=== PATIENT | female | born 1995 | race Caucasian/White ===

== ENCOUNTER 2017-06-17 16:54 | Outpatient (CLI) | payer OTHER ==
[2017-06-17 17:28] LABS: BASOPHILS # (AUTO) 0.3 K/uL (0.00-0.22); EOSINOPHILS # (AUTO) 0.1 K/uL (0-0.4); HEMATOCRIT 40.6 % (36-48); HEMOGLOBIN 13.5 g/dL (12.0-16.0); LYMPHOCYTES # (AUTO) 1.6 K/uL (2.5-16.5); MEAN CORPUSCULAR HEMOGLOBIN 30 pg (27-31); MEAN CORPUSCULAR HGB CONC 33 g/dL (33-37); MEAN CORPUSCULAR VOLUME 90.2 fL (80-94); MONOCYTES # (AUTO) 0.4 K/uL (0.8-1.0); NEUTROPHILS # (AUTO) 3.9 K/uL (1.8-7.7); PLATELET COUNT (AUTO) 235 K/uL (140-450); RED CELL DISTRIBUTION WIDTH 12.6 % (11.6-13.7); WHITE BLOOD COUNT (AUTO) 6.3 K/uL (4.8-10.8)
[2017-06-17 18:23] LABS: BILIRUBIN,URINE NEGATIVE (NEGATIVE); BLOOD, URINE NEGATIVE (NEGATIVE); LEUKOCYTE ESTERASE ,URINE NEGATIVE (NEGATIVE); NITRITE, URINE NEGATIVE (NEGATIVE); UGLUCOSE NEGATIVE (NEGATIVE)
[2017-06-17 18:38] LABS: APPEARANCE,URINE CLEAR (CLEAR); COLOR,URINE STRAW (YELLOW)
[2017-06-17 20:25] LABS: ANION GAP 13.5 (8-16); CHLORIDE 102 mmol/L (98-107); GLUCOSE 136 mg/dL (74-106); POTASSIUM 3.5 mmol/L (3.5-5.1); SODIUM SERUM 138 mmol/L (136-145); UREA NITROGEN, BLOOD 11 mg/dL (7-18)
[2017-06-17 20:26] LABS: CREATININE 0.7 mg/dL (0.6-1.3); GFR ARICAN-AMERICAN 135 mL/min (>90)
[2017-06-17 20:48] LABS: TOTAL BILIRUBIN 0.5 mg/dL (0.0-1.0)
[2017-06-17 20:49] LABS: ALBUMIN 4.1 g/dL (3.4-5.0)
== END 2017-06-17 20:37 | disposition home or self-care (01) ==
LOC: MLB 16:54
DX: Z13.228 Encounter for screening for other metabolic disorders (principal); Z13.21 Encounter for screening for nutritional disorder; Z13.1 Encounter for screening for diabetes mellitus; R63.4 Abnormal weight loss; R59.1 Generalized enlarged lymph nodes; Z77.21 Contact with and (suspected) exposure to potentially hazardous body fluids
CPT/HCPCS: 36415; 80053; 81003; 82306; 83036; 85025; 86702

== ENCOUNTER 2018-10-27 15:52 | Outpatient (CLI) | payer OTHER ==
[2018-10-27 16:37] LABS: BASOPHILS % (AUTO) 0.5 % (0.0-2.0); EOSINOPHILS # (AUTO) 0.1 K/uL (0-0.4); EOSINOPHILS % (AUTO) 1.3 % (0.0-4.0); HEMATOCRIT 41.1 % (36-48); HEMOGLOBIN 13.5 g/dL (12.0-16.0); LYMPHOCYTES # (AUTO) 1.5 K/uL (2.5-16.5); LYMPHOCYTES % (AUTO) 16.7 % (20.5-51.1); MEAN CORPUSCULAR HEMOGLOBIN 30 pg (27-31); MEAN CORPUSCULAR HGB CONC 33 g/dL (33-37); MEAN CORPUSCULAR VOLUME 90.8 fL (80-94); MONOCYTES # (AUTO) 0.5 K/uL (0.8-1.0); MONOCYTES % (AUTO) 5.4 % (1.7-9.3); NEUTROPHILS % (AUTO) 76.1 % (42.2-75.2); PLATELET COUNT (AUTO) 458 K/uL (140-450); RED BLOOD CELL COUNT(AUTO) 4.52 MIL/uL (4.20-5.40); WHITE BLOOD COUNT (AUTO) 9.2 K/uL (4.8-10.8)
== END 2018-10-27 21:06 | disposition home or self-care (01) ==
LOC: MLB 15:52
DX: E87.6 Hypokalemia (principal); N12 Tubulo-interstitial nephritis, not specified as acute or chronic
CPT/HCPCS: 36415; 85025